=== PATIENT | female | born 1995 | race Caucasian/White ===

== ENCOUNTER 2017-03-24 21:00 | Emergency (ER) | payer OTHER ==
[2017-03-24 21:07] VITALS: PULSE 68; RESP 16; TEMP 98.1
--- NOTE | 2017-03-24 22:50 | EDPHY ---
H & P Stated Complaint: lac on right thumb Time Seen by Provider: 03/24/17 22:48 HPI/ROS: HPI: This is a 21-year-old female who presents with Chief Complaint: Right thumb laceration Location: Right thumb Quality: Laceration Duration: 2 hours prior to arrival Signs and Symptoms: + bleeding, no radiation, no numbness, no weakness, no tingling, no decreased range of motion Timing: Acute Severity: [id number] Context: Patient was at an art class working with sheet metal when she accidentally cut the tip of her right thumb. Started to bleed immediately and she felt moderate nonradiating pain. She is right-hand dominant. Reports that her tetanus is up-to-date. She applied direct pressure and her friends drove her to the emergency room. Modifying Factors: Direct pressure Comment: ROS: see HPI Constitutional: No fever, no chills, no weight loss Eyes: No blurred vision Respiratory: No shortness of breath, no cough Cardiovascular: No chest pain Gastrointestinal: No nausea, no vomiting no diarrhea Genitourinary: No dysuria Extremities: No myalgias Neurologic: No weakness, no numbness Skin: No rashes Hematologic: No bruising, no bleeding MEDICAL/SURGICAL/SOCIAL HISTORY: Medical history: Generally healthy. Does not take any regular medications. Surgical history: [place] teeth extraction Social history: Student CONSTITUTIONAL: Well-appearing young adult white female, awake and alert, no obvious distress HEENT: Atraumatic and normocephalic, PERRL, EOMI. Tympanic membranes clear. Oropharynx clear, no exudate and moist pink mucosa. Airway patent. No lymphadenopathy. No meningismus. Cardiovascular: Normal S1/S2, regular rate, regular rhythm, without murmur rub or gallop. PULMONARY/CHEST: Symmetrical and nontender. Clear to auscultation bilaterally. Good air movement. No accessory muscle usage. ABDOMEN: Soft, nondistended, nontender, no rebound, no guarding, no peritoneal signs, no masses or organomegaly. No CVAT. EXTREMITIES: 2/2 pulses, right thumb on pad near tip sparing nail and DIP joint 1.5 cm, simple, superficial, linear laceration. DIP/PIP flexion/extension/ light touch sensation intact. no deformities, no clubbing, no cyanosis or edema. NEUROLOGICAL: no focal neuro deficits. GCS 15. SKIN: Warm and dry, no erythema. no rash. Good capillary refill. Source: Patient Exam Limitations: No limitations - Personal History LMP (Females 10-55): 22-28 Days Ago Current Tetanus/Diphtheria Vaccine: Unsure Current Tetanus Diphtheria and Acellular Pertussis (TDAP): Unsure - Medical/Surgical History Hx Asthma: No Hx Chronic Respiratory Disease: No Hx Diabetes: No Hx Cardiac Disease: No Hx Renal Disease: No Hx Cirrhosis: No Hx Alcoholism: No Hx HIV/AIDS: No Hx Splenectomy or Spleen Trauma: No Other PMH: wisdom teeth - Social History Smoking Status: Current some day smoker Constitutional: Initial Vital Signs Temperature (C) 36.7 C 03/24/17 21:05 Heart Rate 68 03/24/17 21:05 Respiratory Rate 16 03/24/17 21:05 Blood Pressure 109/55 L 03/24/17 21:05 O2 Sat (%) 97 03/24/17 21:05 O2 Delivery Mode Room Air Allergies/Adverse Reactions: amoxicillin Allergy (Verified 03/24/17 21:07) Home Medications: Medication Instructions Recorded Birthcontrol 03/24/17 Medical Decision Making Procedures: Procedure: Laceration repair. Verbal consent was obtained from the patient. The 1.5 cm simple, superficial, linear laceration on the right distal thumb finger pat was anesthetized in the usual fashion. The wound was irrigated, draped and explored to its base with a gloved finger. There were no deep structures involved. No tendon injury was identified. No foreign bodies were identified. The wound was repaired with #4, 6 0 Prolene in simple interrupted pattern. Good hemostasis was achieved and patient tolerated procedure well. Xeroform, dressing and finger splint applied. The procedure was performed by myself. Procedure: Splint placement. A right thumb splint was applied by the Emergency Room cadd technician. After application of the splint I returned and re-examined the patient. The splint was adequately immobilizing the joint and distal to the splint the patient's circulation and sensation was intact. ED Course/Re-evaluation: Tetanus up-to-date No signs of neurovascular compromise/tenting of skin/compartment syndrome/ extremities and joints examined above and below area of concern and are neurovascularly intact/nail injury/tendon injury. Laceration was repaired with #4 Nonabsorbable sutures Differential Diagnosis: Differential diagnosis includes laceration, contusion, nerve injury, tendon injury. Departure - Departure Disposition: Home, Routine, Self-Care Clinical Impression: Laceration of right thumb without complication Qualifiers: Encounter type: initial encounter Qualified Code(s): S61.011A - Laceration without foreign body of right thumb without damage to nail, initial encounter Condition: Good Instructions: Finger Laceration (ED) Additional Instructions: Keep the dressing and splint in place for 48 hours. After 48 hours, you may remove the dressing; wash the site daily with mild soap and water; then pat dry. Keep covered with clean sterile dressing until completely healed. Take ibuprofen 600 mg every 6-8 hours with food as needed for pain. Apply ice for 30 minutes at a time; 2-3 times per day for the next 1-2 days. Sutures will need to be removed in 7-10 days. You may return to this emergency room to have the procedure performed. Referrals: GABBY GLOVER [Other] - As per Instructions Jon Melgar MD [Medical Doctor] - As per Instructions
[2017-03-24 23:09] VITALS: BP 115/62; O2SAT 98
== END 2017-03-24 23:09 | disposition home or self-care (01) ==
PROC: 0HQFXZZ Repair Right Hand Skin, External Approach (ICD-10-PCS; principal; 2017-03-24)
DX: S61.011A Laceration without foreign body of right thumb without damage to nail, initial encounter (principal); F17.200 Nicotine dependence, unspecified, uncomplicated; W26.8XXA Contact with other sharp object(s), not elsewhere classified, initial encounter; Y92.89 Other specified places as the place of occurrence of the external cause; Y93.89 Activity, other specified
CPT/HCPCS: L3925